=== PATIENT | male | born 1950 | race Caucasian/White ===

== ENCOUNTER → 2016-10-10 | Outpatient (CLI) | payer BC, OTHER ==
--- NOTE | 2016-10-10 11:53 | REP ---
Clinical: Chronic bronchitis. Technique: Axial, noncontrast, low-dose images from the thoracic inlet to the upper abdomen using lung screening technique. Comparison: None. Findings: The bilateral lung starr are well-aerated, symmetric and essentially clear. Minimal scattered age-related changes are appreciated. No significant pulmonary parenchymal consolidation, nodule or mass lesion. No pleural effusion/reaction. No pneumothorax. Tracheobronchial tree is patent. Mediastinum demonstrates atherosclerotic changes to the thoracic aorta without aneurysm and no evidence for cardiomegaly. Impression: Lung-RADS category 1. No significant pulmonary parenchymal consolidation, nodule or mass lesion. Signed by Blake Hernadez MD 10/10/2016 11:44 A
== END ==
LOC: M RAD 10:38
PROVIDERS: ATTEND Internal Medicine Cardiovascular Disease
DX: J41.1 Mucopurulent chronic bronchitis (principal)

== ENCOUNTER → 2020-07-22 | Outpatient (REF) | payer MEDICARE, OTHER, BC | LOC: M LAB REF 08:49 | PROVIDERS: ATTEND Dermatology | DX: Z94.5 Skin transplant status (principal) ==

== ENCOUNTER → 2022-01-09 | Outpatient (CLI) | payer MEDICARE, BC, OTHER ==
[~2022-01-09] MED LIST: ISOVUE-300 61% 50ML VIAL As Ordered ONE; LIDOCAINE 1% MDV 20ML VIAL As Ordered ONE; methylPREDNISolone SUSP 40MG/ML 1ML VIAL (DEPO MEDROL) As Ordered ONE
== END ==
LOC: M RADPRO 14:15
PROVIDERS: ATTEND Physician Assistant
DX: S46.012D Strain of muscle(s) and tendon(s) of the rotator cuff of left shoulder, subsequent encounter (principal)
CPT/HCPCS: 20610; 76000; J1030; Q9967

== ENCOUNTER → 2024-08-26 | Outpatient (CLI) | payer MEDICARE, BC | LOC: M RAD 15:02 | PROVIDERS: ATTEND Nurse Practitioner Family | DX: Z87.891 Personal history of nicotine dependence (principal) ==